=== PATIENT | male | born 1995 | race Two or more races ===

== ENCOUNTER 2018-09-03 00:52 | Emergency (ER) | payer MEDICAID ==
[~2018-09-03] VITALS: Ht 177.8 cm; Wt 81.6 kg
[2018-09-03 01:05] VITALS: BP 146/81
[2018-09-03] MEDS ORDERED: LORazepam Inj 2mg/ml 1ml IV ONE (01:15)
--- NOTE | 2018-09-03 01:15 | Emergency Room Report ---
History of Present Illness General Chief Complaint: Chemical Exposure Source: Patient Present Illness HPI Patient presented with complaints of shortness of breath Initially contributes the discomfort to possible bug spray which was applied yesterday over 24 hours ago Later the patient's family does report that the patient smokes marijuana as well Family reports that the patient had some hallucinations Patient denies any chest pain denies any vomiting Denies any focal weakness Allergies: Coded Allergies: No Known Allergies (Unverified , 09/03/18) Patient History Past Medical History: see triage record Pertinent Family History: none Reviewed Nursing Documentation: PMH: Agreed; PSxH: Agreed Review of Systems All Other Systems: negative except mentioned in HPI Physical Exam Vital Signs Date Time Temp Pulse Resp B/P (MAP) Pulse Ox O2 Delivery O2 Flow Rate FiO2 09/03/18 01:01 98.4 145 20 146/81 (102) 100 Room Air Sp02 EP Interpretation: reviewed, normal General Appearance: other - Appears anxious Head: normocephalic, atraumatic Eyes: bilateral eye PERRL, bilateral eye EOMI, bilateral eye other - Bilateral conjunctival erythema ENT: hearing grossly normal, normal pharynx, TMs + canals normal, uvula midline Neck: full range of motion, supple, no meningismus, no bony tend Respiratory: lungs clear, normal breath sounds, no rhonchi, no respiratory distress, no retraction, no accessory muscle use Cardiovascular #1: normal peripheral pulses, no edema, no gallop, no JVD, no murmur, tachycardia Gastrointestinal: normal bowel sounds, non tender, soft, no mass, no organomegaly, non-distended, no guarding, no hernia, no pulsatile mass, no rebound Genitourinary: no CVA tenderness Musculoskeletal: normal inspection Neurologic: oriented x3, responsive, manager valuation III-XII nml as tested, motor strength/ tone normal, sensory intact Psychiatric: mood/affect normal Skin: no rash Lymphatic: normal inspection, no adenopathy Medical Decision Making Diagnostic Impression: Primary Impression: Adverse reaction to cannabis Additional Impression: Palpitations ER Course Given the patient's history and presentation it appears the patient has likely had a reaction to marijuana however given some of the reports of contact with bug spray more extensive work-up initiated with chest x-ray and blood work all within normal limits patient has done Significantly better with acute intervention And on repeat evaluation feels improved and will have close outpatient follow-up Labs Test 09/03/18 01:20 09/03/18 02:30 White Blood Count 8.5 K/UL (4.8-10.8) Red Blood Count 4.85 M/UL (4.70-6.10) Hemoglobin 16.7 G/DL (14.2-18.0) Hematocrit 46.4 % (42.0-52.0) Mean Corpuscular Volume 96 FL (80-99) Mean Corpuscular Hemoglobin 34.4 PG (27.0-31.0) Mean Corpuscular Hemoglobin Concent 36.0 G/DL (32.0-36.0) Red Cell Distribution Width 10.2 % (11.6-14.8) Platelet Count 343 K/UL (150-450) Mean Platelet Volume 7.9 FL (6.5-10.1) Neutrophils (%) (Auto) 57.1 % (45.0-75.0) Lymphocytes (%) (Auto) 32.6 % (20.0-45.0) Monocytes (%) (Auto) 8.6 % (1.0-10.0) Eosinophils (%) (Auto) 1.0 % (0.0-3.0) Basophils (%) (Auto) 0.6 % (0.0-2.0) Prothrombin Time 10.2 SEC (9.30-11.50) Prothromb Time International Ratio 1.0 (0.9-1.1) Activated Partial Thromboplast Time 22 SEC (23-33) Sodium Level 138 MMOL/L (136-145) Potassium Level 3.6 MMOL/L (3.5-5.1) Chloride Level 102 MMOL/L (98-107) Carbon Dioxide Level 26 MMOL/L (21-32) Anion Gap 10 mmol/L (5-15) Blood Urea Nitrogen 15 mg/dL (7-18) Creatinine 1.3 MG/DL (0.55-1.30) Estimat Glomerular Filtration Rate > 60 mL/min (>60) Glucose Level 132 MG/DL (74-106) Calcium Level 9.1 MG/DL (8.5-10.1) Total Bilirubin 0.5 MG/DL (0.2-1.0) Aspartate Amino Transf (AST/SGOT) 31 U/L (15-37) Alanine Aminotransferase (ALT/SGPT) 47 U/L (12-78) Alkaline Phosphatase 85 U/L (46-116) Total Creatine Kinase 156 U/L (26-308) Creatine Kinase MB 0.6 NG/ML (0.0-3.6) Creatine Kinase MB Relative Index 0.3 Total Protein 7.9 G/DL (6.4-8.2) Albumin 4.7 G/DL (3.4-5.0) Globulin 3.2 g/dL Albumin/Globulin Ratio 1.5 (1.0-2.7) Lipase 135 U/L (73-393) Urine Opiates Screen Negative (NEGATIVE) Urine Barbiturates Screen Negative (NEGATIVE) Phencyclidine (PCP) Screen Negative (NEGATIVE) Urine Amphetamines Screen Negative (NEGATIVE) Urine Benzodiazepines Screen Negative (NEGATIVE) Urine Cocaine Screen Negative (NEGATIVE) Urine Marijuana (THC) Screen Positive (NEGATIVE) Rhythm Strip Diag. Results EP Interpretation: yes Rate: 110 Rhythm: no PVC's, no ectopy, other - Sinus tach Chest X-Ray Diagnostic Results Chest X-Ray Diagnostic Results : Chest X-Ray Ordered: Yes # of Views/Limited/Complete: 1 View Indication: Chest Pain EP Interpretation: Yes Interpretation: no consolidation, no effusion, no pneumothorax Impression: No acute disease Electronically Signed by: Roman Banda DO Last Vital Signs Date Time Temp Pulse Resp B/P (MAP) Pulse Ox O2 Delivery O2 Flow Rate FiO2 09/03/18 01:01 98.4 145 20 146/81 (102) 100 Room Air Status: improved Disposition: HOME, SELF-CARE Condition: Improved Scripts No Active Prescriptions or Reported Meds Additional Instructions: Patient is provided with the discharge instructions notified to follow up with primary doctor in the next 2-3 days otherwise return to the er with any worsening symptoms. Please note that this report is being documented using [employer] technology. This can lead to erroneous entry secondary to incorrect interpretation by the dictating instrument. Roman Banda DO Sep 03, 2018 01:15
[2018-09-03 01:32] LABS: BASOPHILS % (AUTO) 0.6 % (0.0-2.0); HEMATOCRIT 46.4 % (42.0-52.0); HEMOGLOBIN 16.7 G/DL (14.2-18.0); LYMPHOCYTES % (AUTO) 32.6 % (20.0-45.0); MEAN CORPUSCULAR VOLUME 96 FL (80-99); MONOCYTES % (AUTO) 8.6 % (1.0-10.0); NEUTROPHILS % (AUTO) 57.1 % (45.0-75.0); PLATELET COUNT 343 K/UL (150-450); RED BLOOD COUNT 4.85 M/UL (4.70-6.10); RED CELL DISTRIBUTION WIDTH 10.2 % (11.6-14.8); WHITE BLOOD COUNT 8.5 K/UL (4.8-10.8)
[2018-09-03 01:42] LABS: ANION GAP 10 mmol/L (5-15); BLOOD UREA NITROGEN 15 mg/dL (7-18); CALCIUM 9.1 MG/DL (8.5-10.1); CARBON DIOXIDE 26 MMOL/L (21-32); CHLORIDE 102 MMOL/L (98-107); CREATININE 1.3 MG/DL (0.55-1.30); POTASSIUM 3.6 MMOL/L (3.5-5.1); SODIUM 138 MMOL/L (136-145)
[2018-09-03 01:55] LABS: ALANINE AMINOTRANSFERASE 47 U/L (12-78); ALBUMIN 4.7 G/DL (3.4-5.0); ALBUMIN/GLOBULIN RATIO 1.5 (1.0-2.7); ALKALINE PHOSPHATASE 85 U/L (46-116); ASPARTATE AMINO TRANSFERASE 31 U/L (15-37); BILIRUBIN,TOTAL 0.5 MG/DL (0.2-1.0); CKMB 0.6 NG/ML (0.0-3.6); CREATINE KINASE 156 U/L (26-308)
[2018-09-03 03:10] VITALS: BP 146/81
--- NOTE | 2018-09-03 11:56 | Diagnostic Imaging Report ---
Indication: Dyspnea Comparison: None A single view chest radiograph was obtained. Findings: Cardiomediastinal appearance is within normal limits for age. The lungs are clear. Pulmonary vascularity is appropriate. The diaphragmatic contour is smooth and costophrenic angles are sharp. No pleural effusions are identified. The bones are unremarkable. Impression: No acute findings
--- NOTE | 2018-09-04 16:00 | Cardiology Report ---
APPROVED REPORT EKG Measurement Heart [id number] Sinus tachycardia Right axis deviation Abnormal ECG
== END 2018-09-03 03:10 | disposition home or self-care (01) ==
LOC: EMR 01:17
DX: R00.2 Palpitations (principal); T40.7X5A Adverse effect of cannabis (derivatives), initial encounter; Y92.9 Unspecified place or not applicable
CPT/HCPCS: 36415; 71045; 80053; 80307; 82550; 82553; 83690; 85025; 85610; 85730; 93005; 96361; 96374; 99284; J7040